=== PATIENT | male | born 1960 | race African-American/Black ===

== ENCOUNTER 2016-11-07 12:37 | Emergency (ER) | payer BC ==
[2016-11-07 12:44] VITALS: TEMP 97.2; BMI 27.8
--- NOTE | 2016-11-07 13:47 | PDOC ---
History of Present Illness - General Chief Complaint: Pain Stated Complaint: RT SIDE/BACK PAIN Time Seen by Provider: 11/07/16 13:47 History Source: Patient Exam Limitations: No Limitations - History of Present Illness Initial Comments: 11/07/16 13:47 CHIEF COMPLAINT: Flank pain HISTORY OF PRESENT ILLNESS: This is a 56 year old male with a history only of bilateral hip replacement who presents complaining of three days of worsening right flank pain. He reports no relief of pain from Motrin. He denies fevers/ chills, nausea/vomiting, dysuria/hematuria, or any other symptoms. He has no history of kidney stones. 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 V/s on arrival are notable for BP 168/102. REVIEW OF SYSTEMS: GENERAL/CONSTITUTIONAL: No fever or chills. No weakness. No weight change. HEAD, EYES, EARS, NOSE AND THROAT: No change in vision. No ear pain or discharge. No sore throat. CARDIOVASCULAR: No chest pain or palpitations. RESPIRATORY: No cough, wheezing, or shortness of breath. GASTROINTESTINAL: No nausea, vomiting, diarrhea or constipation. GENITOURINARY: See HPI. MUSCULOSKELETAL: No joint or muscle swelling or pain. No neck or back pain. SKIN: No rash or easy bruising. NEUROLOGIC: No headache, vertigo, loss of consciousness, or loss of sensation. PSYCHIATRIC: No depression or anxiety. ENDOCRINE: No increased thirst. No abnormal weight change. HEMATOLOGIC/LYMPHATIC: No anemia, easy bleeding, or history of blood clots. ALLERGIC/IMMUNOLOGIC: No hives or skin allergy. No latex allergy. PHYSICAL EXAM: GENERAL: The patient is awake, alert, and fully oriented, in no acute distress. HEAD: Normal with no signs of trauma. ENT: Pupils equal, round and reactive to light, extraocular movements intact, sclera anicteric, conjunctiva clear. Neck supple. LUNGS: Clear to auscultation bilaterally. Normal excursion. No respiratory distress or use of accessory muscles. CV: RRR, S1/S2, no MRG. Cap refill < 2 sec. ABDOMEN: Soft, non-distended, non-tender. Right CVA tenderness. EXTREMITIES: Normal range of motion, no edema. NEUROLOGICAL: Normal speech, normal gait. CN II-XII grossly intact. PSYCH: Normal mood, normal affect. SKIN: Warm, dry, normal turgor, no rashes or lesions noted. Past History - Past Medical History Allergies/Adverse Reactions: Allergies Allergy/AdvReac Type Severity Reaction Status Date / Time No Known Allergies Allergy Verified 11/07/16 12:45 Home Medications: Ambulatory Orders Omeprazole Magnesium [Prilosec] 10 mg PO DAILY 11/07/16 Oxycodone HCl/Acetaminophen [Percocet 5-325 mg Tablet] 1 tab PO Q6H PRN #20 tablet MDD 4 11/07/16 Anemia: No Asthma: No Cancer: No Cardiac Disorders: Yes (STATES "EXTRA' HEART BEAT-HE WAS TOLD THIS A LONG TIME AGO) CVA: No COPD: No CHF: No Dementia: No Diabetes: No GI Disorders: Yes (GERD) Disorders: No HTN: No Hypercholesterolemia: No Liver Disease: No Seizures: No Thyroid Disease: No - Surgical History Abdominal Surgery: No Appendectomy: No Cardiac Surgery: No Cholecystectomy: No Lung Surgery: No Neurologic Surgery: No Orthopedic Surgery: Yes (LEFT HIP REPLACEMENT 01/2016, LEFT KNEE ARTHROSCOPY IN PAST) - Immunization History Immunization Up to Date: Yes - Psycho/Social/Smoking Cessation Hx Anxiety: No Suicidal Ideation: No Smoking Status: No Smoking History: Never smoked Have you smoked in the past 12 months: No Number of Cigarettes Smoked Daily: 0 If you are a former smoker, when did you quit?: 20 years ago Hx Alcohol Use: No Drug/Substance Use Hx: No Substance Use Type: None Hx Substance Use Treatment: No *Physical Exam - Vital Signs Last Vital Signs Temp Pulse Resp BP Pulse Ox 97.2 F L 85 20 168/102 97 11/07/16 12:38 11/07/16 12:38 11/07/16 12:38 11/07/16 12:38 11/07/16 12:38 ED Treatment Course - LABORATORY CBC & Chemistry Diagram: 11/07/16 14:19 11/07/16 14:19 Medical Decision Making - Medical Decision Making 11/07/16 15:34 A/P: 56 year old male with flank pain. 1. UA/culture 2. Basic labs 3. Toradol 30mg IVP for pain 4. CT spiral renal stone protocol 5. Re-assess 11/07/16 15:55 K 5.4 11/07/16 16:35 No relief of pain from Toradol 30mg IVP. Will give morphine 4mg. 11/07/16 17:20 CT reviewed: punctate right kidney stone with 1 cm cyst in lower pole. Pain improved. Will dc with nephrology followup. *DC/Admit/Observation/Transfer Diagnosis at time of Disposition: Right flank pain - Discharge Dispostion Disposition: HOME Condition at time of disposition: Improved Admit: No - Referrals Referrals: Abhijit Mendoza MD [Primary Care Provider] - - Patient Instructions Printed Discharge Instructions: DI for Flank Pain Additional Instructions: -Rest and stay well-hydrated -Take pain medication as needed -Follow up with nephrology regarding the right renal cyst that was identified on your CT scan (referral enclosed) -Retrn here for worsening pain or any other concerning symptoms - Post Discharge Activity Work/School Note: Parent(s) Back to Work Note
[2016-11-07] MEDS ORDERED: KETOROLAC TROMETHAMINE 30 MG/1 ML VIAL IVPUSH ONE (14:00)
[2016-11-07] MEDS ORDERED: KETOROLAC TROMETHAMINE 30 MG/1 ML VIAL ONE (14:23)
[2016-11-07 14:50] LABS: BASOPHIL 0.8 % (0-2.0); MCH 27.3 pg (25.7-33.7); MCHC 32.6 g/dl (32.0-35.9); MEAN PLT VOLUME 9.1 fl (7.5-11.1); NEUTROPHILS 49.3 % (42.8-82.8); PLATELET COUNT 236 K/MM3 (134-434); WHITE BLOOD COUNT 5.1 K/mm3 (4.0-10.0)
[2016-11-07 14:58] LABS: URINE APPEARANCE CLEAR; URINE BILIRUBIN NEGATIVE (NEGATIVE); URINE BLOOD NEGATIVE (NEGATIVE); URINE COLOR LTYELLOW; URINE GLUCOSE (UA) NEGATIVE (NEGATIVE); URINE KETONE NEGATIVE (NEGATIVE); URINE LEUK ESTERASE NEGATIVE (NEGATIVE); URINE NITRITE NEGATIVE (NEGATIVE); URINE UROBILINOGEN NEGATIVE E.U./dl (0.2-1.0)
[2016-11-07 15:02] LABS: URINE PROTEIN 1+ (NEGATIVE)
[2016-11-07 15:14] LABS: ALBUMIN 3.8 g/dl (3.4-5.0); ANION GAP 10 (8-16); CALCIUM 9.1 mg/dL (8.5-10.1); CO2 27 mmol/L (21-32); CREATININE 0.8 mg/dL (0.7-1.3); GLUCOSE,RANDOM 86 mg/dL (74-106); SGPT/ALT 30 U/L (12-78)
[2016-11-07 15:15] LABS: ALK PHOS 59 U/L (45-117); BILIRUBIN,TOTAL 0.5 mg/dL (0.2-1.0); TOT PROT 7.8 g/dl (6.4-8.2)
[2016-11-07 15:25] LABS: SGOT/AST 41 U/L (15-37)
[2016-11-07 16:16] LABS: URINE MUCUS RARE; URINE RBC <1 /hpf (0-3); URINE WBC 1 /hpf (3-5)
[2016-11-07 16:22] LABS: URINE HYALINE CAST 1 /lpf
[2016-11-07] MEDS ORDERED: morphine CARPU-JECT 4 MG/1 ML DISP.SYRIN IVPUSH ONE (16:35)
[2016-11-07] MEDS ORDERED: morphine CARPU-JECT 4 MG/1 ML DISP.SYRIN ONE (16:44)
[2016-11-07 18:13] VITALS: BP 154/88; PULSE 80
== END 2016-11-07 18:14 | disposition home or self-care (01) ==
LOC: JER 12:37
PROC: 3E033NZ Introduction of Analgesics, Hypnotics, Sedatives into Peripheral Vein, Percutaneous Approach (ICD-10-PCS; principal; 2016-11-07)
PROC: 3E0333Z Introduction of Anti-inflammatory into Peripheral Vein, Percutaneous Approach (ICD-10-PCS; 2016-11-07)
DX: R10.31 Right lower quadrant pain (principal)
CPT/HCPCS: 36415; 74176; 80053; 81003; 81015; 85025; 87086; 99283-25

== ENCOUNTER 2016-11-10 10:27 | Emergency (ER) | payer BC ==
[2016-11-10 10:37] VITALS: BMI 27.8
[2016-11-10] MEDS ORDERED: KETOROLAC TROMETHAMINE 30 MG/1 ML VIAL IVPUSH ONE (10:56)
[2016-11-10] MEDS ORDERED: SODIUM CHLORIDE 1,000 ML IV STA (10:56)
[2016-11-10] MEDS ORDERED: KETOROLAC TROMETHAMINE 30 MG/1 ML VIAL ONE (10:59)
--- NOTE | 2016-11-10 11:11 | PDOC ---
History of Present Illness - General Chief Complaint: Pain Stated Complaint: KIDNEY PAIN Time Seen by Provider: 11/10/16 10:49 History Source: Patient Exam Limitations: No Limitations - History of Present Illness Travel History: No Initial Comments: 11/10/16 11:09 56-year-old male recently diagnosed with a right kidney stone presents to the ED with worsening right flank pain stating the Percocet is not working. Patient states he also has been constipated for the past 2 days and took Dulcolax pill this morning prior to arrival. Patient denies nausea, fever, chills, difficulty urinating, hematuria, or radiation of pain. Patient states has not appointment with the urologist until next week and so decided to come to the ER today. Timing/Duration: reports: intermittent Quality: reports: moderate, sharpness Abdominal Pain Onset Location: reports: flank Pain Radiation: reports: no radiation Activities at Onset: reports: none Aggravating Factors: improves with: None Alleviating Factors: improves with: None Past History - Past Medical History Allergies/Adverse Reactions: Allergies Allergy/AdvReac Type Severity Reaction Status Date / Time No Known Allergies Allergy Verified 11/10/16 10:33 Home Medications: Ambulatory Orders Omeprazole Magnesium [Prilosec] 10 mg PO DAILY 11/07/16 Oxycodone HCl/Acetaminophen [Percocet 5-325 mg Tablet] 1 tab PO Q6H PRN #20 tablet MDD 4 11/07/16 Tamsulosin HCl [Flomax] 0.4 mg PO DAILY #7 cap.er.24h 11/10/16 Anemia: No Asthma: No Cancer: No Cardiac Disorders: Yes (STATES "EXTRA' HEART BEAT-HE WAS TOLD THIS A LONG TIME AGO) CVA: No COPD: No CHF: No Dementia: No Diabetes: No GI Disorders: Yes (GERD) Disorders: No HTN: No Hypercholesterolemia: No Kidney Stones: Yes Liver Disease: No Seizures: No Thyroid Disease: No - Surgical History Abdominal Surgery: No Appendectomy: No Cardiac Surgery: No Cholecystectomy: No Lung Surgery: No Neurologic Surgery: No Orthopedic Surgery: Yes (LEFT HIP REPLACEMENT 01/2016, LEFT KNEE ARTHROSCOPY IN PAST) - Immunization History Immunization Up to Date: Yes - Psycho/Social/Smoking Cessation Hx Anxiety: No Suicidal Ideation: No Smoking Status: No Smoking History: Never smoked Have you smoked in the past 12 months: No Number of Cigarettes Smoked Daily: 0 If you are a former smoker, when did you quit?: 20 years ago Information on smoking cessation initiated: No Hx Alcohol Use: No Drug/Substance Use Hx: No Substance Use Type: None Hx Substance Use Treatment: No Patient Lives Alone: No Abd/GI Specific PMHX - Complaint Specific PMHX GERD: No Review of Systems - Review of Systems Able to Perform ROS?: Yes Constitutional: No: Symptoms Reported HEENTM: No: Symptoms Reported Respiratory: No: Symptoms reported Cardiac (ROS): No: Symptoms Reported ABD/GI: Yes: Constipated : Yes: Flank Pain Musculoskeletal: No: Symptoms Reported Integumentary: No: Symptoms Reported Neurological: No: Symptoms reported Endocrine: No: Symptoms Reported Hematologic/Lymphatic: No: Symptoms Reported *Physical Exam - Vital Signs Last Vital Signs Temp Pulse Resp BP Pulse Ox 98.6 F 83 18 169/115 100 11/10/16 10:34 11/10/16 10:34 11/10/16 10:34 11/10/16 10:34 11/10/16 10:34 - Physical Exam General Appearance: Yes: Nourished, Appropriately Dressed. No: Apparent Distress HEENT: positive: EOMI, DAVEY. negative: Pale Conjunctivae Neck: positive: Supple Respiratory/Chest: positive: Lungs Clear, Normal Breath Sounds. negative: Respiratory Distress, Accessory Muscle Use Cardiovascular: positive: Regular Rhythm, Regular Rate. negative: Murmur Gastrointestinal/Abdominal: positive: Soft, Tenderness (rt flank. no ruq pain) Musculoskeletal: positive: CVA Tenderness (R) Extremity: positive: Normal Capillary Refill. negative: Pedal Edema Integumentary: positive: Normal Color, Warm, Moist Neurologic: positive: Motor Strength 5/5 (ambulatory) ED Treatment Course - LABORATORY CBC & Chemistry Diagram: 11/10/16 10:50 11/10/16 13:00 - RADIOLOGY Radiology Studies Ordered: Category Date Time Status KIDNEY / RENAL US [US] Stat Ultrasound 11/10/16 10:56 Ordered Medical Decision Making - Medical Decision Making 11/10/16 11:24 Patient here with continual right flank pain without fever, dysuria or hematuria. Patient states Percocet ineffective and ordered for labs, Toradol, IV fluids urine and ultrasound to observe for obstruction. Patient also ordered for Flomax 11/10/16 13:56 Laboratory Tests 11/10/16 11/10/16 11/10/16 10:50 10:50 13:00 WBC 4.3 Hgb 15.6 Hct 47.2 Plt Count 251 Neutrophils % 49.5 Sodium 138 Potassium 4.5 Chloride 102 Carbon Dioxide 28 Anion Gap 8 Creatinine 0.8 Random Glucose 92 Calcium 8.7 AST 25 D ALT 32 Lipase 91 Urine Protein 1+ H Urine Ketones Negative Urine Blood Negative Urine Nitrite Negative Ur Leukocyte Esterase Negative Urine RBC <1 Ultrasound notes a right renal cyst with no hydronephrosis or other acute pathology. Patient will be discharged home with Flomax and told to follow up with his urologist. *DC/Admit/Observation/Transfer Diagnosis at time of Disposition: Flank pain - Discharge Dispostion Disposition: HOME Condition at time of disposition: Improved - Prescriptions Prescriptions: Tamsulosin HCl [Flomax] 0.4 mg PO DAILY #7 cap.er.24h - Referrals Referrals: Abhijit Mendoza MD [Primary Care Provider] - Miles Lozada MD [Staff Physician] - Parminder Wilder MD [Staff Physician] - - Patient Instructions Printed Discharge Instructions: DI for Kidney Stones Additional Instructions: Please follow-up with urologist as scheduled next week. Please and plenty of fluid intake Flomax with your regimen. Continue Percocet as needed for discomfort. Add fiber to diet. May take [id number] MiraLAX for constipation
[2016-11-10 11:43] LABS: BASOPHIL 0.7 % (0-2.0); MCH 27.5 pg (25.7-33.7); MCHC 33.1 g/dl (32.0-35.9); MEAN CELL VOLUME 83.1 fl (80-96); MEAN PLT VOLUME 8.8 fl (7.5-11.1); NEUTROPHILS 49.5 % (42.8-82.8); PLATELET COUNT 251 K/MM3 (134-434); RDW 14.7 % (11.9-15.9); URINE APPEARANCE CLEAR; URINE BILIRUBIN NEGATIVE (NEGATIVE); URINE BLOOD NEGATIVE (NEGATIVE); URINE COLOR STRAW; URINE GLUCOSE (UA) NEGATIVE (NEGATIVE); URINE KETONE NEGATIVE (NEGATIVE); URINE LEUK ESTERASE NEGATIVE (NEGATIVE); URINE NITRITE NEGATIVE (NEGATIVE); URINE UROBILINOGEN NEGATIVE E.U./dl (0.2-1.0); WHITE BLOOD COUNT 4.3 K/mm3 (4.0-10.0)
[2016-11-10 11:44] LABS: URINE PROTEIN 1+ (NEGATIVE)
[2016-11-10 11:45] LABS: URINE MUCUS RARE; URINE RBC <1 /hpf (0-3); URINE WBC <1 /hpf (3-5)
--- NOTE | 2016-11-10 12:31 | PDOC ---
*Physical Exam - Vital Signs Last Vital Signs Temp Pulse Resp BP Pulse Ox 98.6 F 82 16 155/114 97 11/10/16 10:34 11/10/16 11:27 11/10/16 11:27 11/10/16 11:27 11/10/16 11:27 ED Treatment Course - LABORATORY CBC & Chemistry Diagram: 11/10/16 10:50 11/10/16 13:00 - ADDITIONAL ORDERS Additional order review: Laboratory Results 11/10/16 11/10/16 11:23 10:50 Sodium Cancelled Potassium Cancelled Chloride Cancelled Carbon Dioxide Cancelled Anion Gap Cancelled BUN Cancelled Creatinine Cancelled Creat Clearance w eGFR Cancelled Random Glucose Cancelled Calcium Cancelled Total Bilirubin Cancelled AST Cancelled ALT Cancelled Alkaline Phosphatase Cancelled Total Protein Cancelled Albumin Cancelled Lipase Cancelled Urine Color Straw Urine Appearance Clear Urine pH 6.0 Ur Specific [place] 1.011 Urine Protein 1+ H Urine Glucose (UA) Negative Urine Ketones Negative Urine Blood Negative Urine Nitrite Negative Urine Bilirubin Negative Urine Urobilinogen Negative Ur Leukocyte Esterase Negative Urine RBC <1 Urine WBC <1 Urine Mucus Rare 11/10/16 10:50 RBC 5.68 H MCV 83.1 MCHC 33.1 RDW 14.7 MPV 8.8 Neutrophils % 49.5 Lymphocytes % 32.6 Monocytes % 15.2 H Eosinophils % 2.0 Basophils % 0.7 - Medications Given in the ED: ED Medications Discontinued Medications Generic Name Dose Route Start Last Admin Trade Name Freq PRN Reason Stop Dose Admin Sodium Chloride 1,000 mls @ 1,000 mls/hr 11/10/16 10:56 11/10/16 11:10 Normal Saline - IV 11/10/16 11:55 1,000 mls/hr ASDIR STA Administration Ketorolac Tromethamine 30 mg 11/10/16 10:56 11/10/16 11:10 Toradol Injection - IVPUSH 11/10/16 10:57 30 mg ONCE ONE Administration Medical Decision Making - Medical Decision Making 11/10/16 12:31 Pt seen by Midlevel Provider under my direct supervision Ancillary studies reviewed I agree with plan as outlined by Midlevel Provider *DC/Admit/Observation/Transfer Diagnosis at time of Disposition: Flank pain - Discharge Dispostion Disposition: HOME Condition at time of disposition: Improved - Prescriptions Prescriptions: Tamsulosin HCl [Flomax] 0.4 mg PO DAILY #7 cap.er.24h - Referrals Referrals: Jefferson-Parminder Urbina MD [Staff Physician] - Abhijit Mendoza MD [Primary Care Provider] - Miles Lozada MD [Staff Physician] - - Patient Instructions Printed Discharge Instructions: DI for Kidney Stones Additional Instructions: Please follow-up with urologist as scheduled next week. Please and plenty of fluid intake Flomax with your regimen. Continue Percocet as needed for discomfort. Add fiber to diet. May take [id number] MiraLAX for constipation
[2016-11-10] MEDS ORDERED: morphine CARPU-JECT 2 MG/1 ML DISP.SYRIN IVPUSH ONE (12:52)
[2016-11-10] MEDS ORDERED: morphine CARPU-JECT 2 MG/1 ML DISP.SYRIN ONE (12:55)
[2016-11-10] MEDS ORDERED: morphine CARPU-JECT 4 MG/1 ML DISP.SYRIN ONE (12:55)
[2016-11-10 13:31] LABS: ALBUMIN 3.6 g/dl (3.4-5.0); ANION GAP 8 (8-16); CALCIUM 8.7 mg/dL (8.5-10.1); CO2 28 mmol/L (21-32); CREATININE 0.8 mg/dL (0.7-1.3); GLUCOSE,RANDOM 92 mg/dL (74-106); SGOT/AST 25 U/L (15-37); SGPT/ALT 32 U/L (12-78)
[2016-11-10 13:33] LABS: ALK PHOS 60 U/L (45-117); BILIRUBIN,TOTAL 0.4 mg/dL (0.2-1.0); TOT PROT 7.3 g/dl (6.4-8.2)
[2016-11-10 14:50] VITALS: BP 144/105; PULSE 81; TEMP 98
== END 2016-11-10 14:46 | disposition home or self-care (01) ==
LOC: JER 10:27
PROC: 3E033NZ Introduction of Analgesics, Hypnotics, Sedatives into Peripheral Vein, Percutaneous Approach (ICD-10-PCS; principal; 2016-11-10)
DX: R10.31 Right lower quadrant pain (principal); Z87.442 Personal history of urinary calculi
CPT/HCPCS: 36415; 76775-TC; 80053; 81003; 81015; 83690; 85025; 99284-25

== ENCOUNTER 2017-03-18 05:54 | Observation (INO) | payer BC ==
[2017-03-18 06:34] VITALS: BMI 27.8
--- NOTE | 2017-03-18 07:40 | PDOC ---
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 He also states that the pain radiated to the epigastrium but not anymore. pmh of kidney stones and hep c 03/18/17 07:57 patient complains that his acid reflux is acting up. No dysuria, hematuria, shortness of breath, chest pain, nausea or vomiting. <Bill Melgoza - Last Filed: 03/18/17 12:16> <Tiffanie Godfrey - Last Filed: 03/18/17 16:37> - General Chief Complaint: Chest Pain Stated Complaint: CHEST PAIN Time Seen by Provider: 03/18/17 07:24 Past History - Past Medical History Anemia: No Asthma: No Cancer: No Cardiac Disorders: Yes (STATES "EXTRA' HEART BEAT-HE WAS TOLD THIS A LONG TIME AGO) CVA: No COPD: No CHF: No Dementia: No Diabetes: No GI Disorders: Yes (GERD) Disorders: No HTN: No Hypercholesterolemia: No Kidney Stones: Yes Liver Disease: No Seizures: No Thyroid Disease: No - Surgical History Abdominal Surgery: No Appendectomy: No Cardiac Surgery: No Cholecystectomy: No Lung Surgery: No Neurologic Surgery: No Orthopedic Surgery: Yes (LEFT HIP REPLACEMENT 01/2016, LEFT KNEE ARTHROSCOPY IN PAST) - Immunization History Immunization Up to Date: Yes - Psycho/Social/Smoking Cessation Hx Anxiety: No Suicidal Ideation: No Smoking Status: No Smoking History: Former smoker Have you smoked in the past 12 months: No Number of Cigarettes Smoked Daily: 0 If you are a former smoker, when did you quit?: 20 years ago Information on smoking cessation initiated: No Hx Alcohol Use: No Drug/Substance Use Hx: No Substance Use Type: None Hx Substance Use Treatment: No <Bill Melgoza - Last Filed: 03/18/17 12:16> <Tiffanie Godfrey - Last Filed: 03/18/17 16:37> - Past Medical History Allergies/Adverse Reactions: Allergies Allergy/AdvReac Type Severity Reaction Status Date / Time No Known Allergies Allergy Verified 03/18/17 06:01 Home Medications: Ambulatory Orders Omeprazole Magnesium [Prilosec] 20 mg PO DAILY 03/18/17 Abd/GI Specific PMHX - Complaint Specific PMHX GERD: No <Bill Melgoza - Last Filed: 03/18/17 12:16> Review of Systems - Review of Systems Constitutional: No: Symptoms Reported HEENTM: No: Symptoms Reported Respiratory: Yes: Symptoms reported. No: Orthopnea, Shortness of Breath, Stridor, Wheezing Cardiac (ROS): No: Symptoms Reported, Edema, Irregular Heart Rate, Palpitations ABD/GI: Yes: Abdominal Distended, Indigestion. No: Nausea : Yes: See HPI. No: Burning, Dysuria, Discharge Musculoskeletal: No: Symptoms Reported <MelgozaBill - Last Filed: 03/18/17 12:16> *Physical Exam - Vital Signs Last Vital Signs Temp Pulse Resp BP Pulse Ox 98.1 F 80 16 133/84 100 03/18/17 06:00 03/18/17 06:00 03/18/17 06:00 03/18/17 06:00 03/18/17 06:00 - Physical Exam General Appearance: Yes: Nourished, Appropriately Dressed. No: Apparent Distress HEENT: positive: Normal ENT Inspection (Strabismus of the eyes with horizontal nystagmus, chonic condition) Respiratory/Chest: positive: Lungs Clear, Normal Breath Sounds. negative: Chest Tender Cardiovascular: positive: Regular Rhythm, Regular Rate, S1, S2 Gastrointestinal/Abdominal: positive: Normal Bowel Sounds, Soft. negative: Tender Musculoskeletal: positive: CVA Tenderness (R), CVA Tenderness (L). negative: Vertebral Tenderness Extremity: positive: Coldness (possible clubbin), Delayed Capillary Refill. negative: Pedal Edema Neurologic: positive: Fully Oriented, Alert, Normal Mood/Affect <AbadBill - Last Filed: 03/18/17 12:16> - Vital Signs Last Vital Signs Temp Pulse Resp BP Pulse Ox 98.7 F 68 16 134/78 98 03/18/17 11:57 03/18/17 11:57 03/18/17 11:57 03/18/17 11:57 03/18/17 11:57 <Tiffanie Godfrey - Last Filed: 03/18/17 16:37> ED Treatment Course - LABORATORY CBC & Chemistry Diagram: 03/18/17 07:30 03/18/17 07:30 <Bill Melgoza - Last Filed: 03/18/17 12:16> - LABORATORY CBC & Chemistry Diagram: 03/18/17 07:30 03/18/17 07:30 - ADDITIONAL ORDERS Additional order review: Laboratory Results 03/18/17 03/18/17 03/18/17 08:52 07:30 07:30 Sodium 137 Potassium 5.1 Chloride 104 Carbon Dioxide 24 Anion Gap 9 BUN 15 D Creatinine 1.0 D Creat Clearance w eGFR > 60 Random Glucose 105 Calcium 9.3 Magnesium Cancelled 1.9 Total Bilirubin 0.5 D AST 33 D ALT 30 Alkaline Phosphatase 59 Creatine Kinase 158 Creatine Kinase Index 0.6 CK-MB (CK-2) 1.004 Troponin I < 0.02 Total Protein 7.6 Albumin 3.5 Urine Color Dkyellow Urine Appearance Slcloudy Urine pH 5.0 Ur Specific [place] 1.025 Urine Protein 2+ H Urine Glucose (UA) Negative Urine Ketones Trace H Urine Blood Negative Urine Nitrite Negative Urine Bilirubin Negative Urine Urobilinogen Negative Ur Leukocyte Esterase Negative Urine RBC 1 Urine WBC 1 Hyaline Casts 12 Urine Mucus Many 03/18/17 07:30 RBC 5.82 H MCV 85.5 MCHC 33.1 RDW 14.2 MPV 8.9 Neutrophils % 64.3 D Lymphocytes % 19.2 D Monocytes % 15.4 H Eosinophils % 0.8 Basophils % 0.3 - Medications Given in the ED: ED Medications Discontinued Medications Generic Name Dose Route Start Last Admin Trade Name David PRN Reason Stop Dose Admin Pantoprazole Sodium 40 mg/ 100 mls @ 200 mls/hr 03/18/17 07:56 03/18/17 08:40 Sodium Chloride IVPB 03/18/17 08:25 200 mls/hr ONCE ONE Administration Ibuprofen 800 mg 03/18/17 07:56 03/18/17 08:53 Caldolor Injection - IVPB 03/18/17 07:57 Not Given ONCE ONE Ibuprofen 800 mg 03/18/17 08:50 03/18/17 08:53 Motrin - PO 03/18/17 08:51 800 mg ONCE ONE Administration Morphine Sulfate 4 mg 03/18/17 09:49 03/18/17 09:55 Morphine Injection - IVPUSH 03/18/17 09:50 4 mg ONCE ONE Administration <Tiffanie Godfrey - Last Filed: 03/18/17 16:37> Medical Decision Making - Medical Decision Making 03/18/17 08:15 57M with h/o kidney stones presents with b/l flank pain. labs negative EKg: normal sinus rythm. Possible Left atrial enlargement. Nonspecific ST and T wave abnormality." B/l renal cysts on U/S UA: 2+ protein, 12 hyaline casts, many mucus 03/18/17 11:[address] Mendoza who recommended admit telemetry beuro checks q4, Low Na diet and consult with Dr Troy 03/18/17 12:17 <Bill Melgoza - Last Filed: 03/18/17 12:16> *DC/Admit/Observation/Transfer - Discharge Dispostion Admit: Yes <Bill Melgoza - Last Filed: 03/18/17 12:16> - Discharge Dispostion Admit: Yes <Tiffanie Godfrey - Last Filed: 03/18/17 16:37> Diagnosis at time of Disposition: Pre-syncope, Bilateral flank pain Chest pain Qualifiers: Chest pain type: unspecified Qualified Code(s): R07.9 - Chest pain, unspecified - Discharge Dispostion Condition at time of disposition: Stable - Referrals Referrals: Abhijit Mendoza MD [Primary Care Provider] - - Patient Instructions Printed Discharge Instructions: DI for Low Back Pain
[2017-03-18 07:46] LABS: BASOPHIL 0.3 % (0-2.0); EOSINOPHIL 0.8 % (0-4.5); MCH 28.3 pg (25.7-33.7); MCHC 33.1 g/dl (32.0-35.9); MEAN CELL VOLUME 85.5 fl (80-96); MEAN PLT VOLUME 8.9 fl (7.5-11.1); NEUTROPHILS 64.3 % (42.8-82.8); PLATELET COUNT 251 K/MM3 (134-434); RDW 14.2 % (11.9-15.9); WHITE BLOOD COUNT 6.1 K/mm3 (4.0-10.0)
[2017-03-18] MEDS ORDERED: IBUPROFEN 800 MG/8 ML IJ IVPB ONE ×2 (07:56→18:46)
[2017-03-18] MEDS ORDERED: PANTOPRAZOLE SODIUM 40 MG in SODIUM CHLORIDE 100 ML IVPB ONE (07:56)
--- NOTE | 2017-03-18 08:08 | PDOC ---
Attending Attestation - Resident Resident Name: Bill Melgoza - ED Attending Attestation I have performed the following: I have examined & evaluated the patient, The case was reviewed & discussed with the resident, I agree w/resident's findings & plan, Exceptions are as noted - HPI HPI: 57 yo M history albinism, blindness, prior kidney stone presents with B/L flank pain. He has had similar pain in the past, was found to have small (punctate) kidney stone as well as renal cyst. The pain resolved spontaneously, and he did not subsequently follow up. This morning he had another episode of pain, felt as if he was sweaty, about to pass out. He had associated epigastric pain as well. Denies SOB. Pain is similar to prior visit for kidney stone. - Physicial Exam PE: GENERAL: Awake, alert, and fully oriented, in no acute distress HEAD: No signs of trauma EYES: +B/L horizontal nystagmus. ENT: Auricles normal inspection, hearing grossly normal, nares patent, oropharynx clear without exudates. Moist mucosa NECK: Normal ROM, supple, no lymphadenopathy, JVD, or masses LUNGS: Breath sounds equal, clear to auscultation bilaterally. No wheezes, and no crackles HEART: Regular rate and rhythm, normal S1 and S2, no murmurs, rubs or gallops ABDOMEN: Soft, nontender, normoactive bowel sounds. No guarding, no rebound. No masses EXTREMITIES: Normal range of motion, no edema. No clubbing or cyanosis. No cords, erythema, or tenderness NEUROLOGICAL: Cranial nerves II through XII grossly intact. Normal speech, normal gait SKIN: Warm, Dry, normal turgor, no rashes or lesions noted. +Albinism. - Medical Decision Making Patient with flank pain, epigastric pain, near syncope. Renal scan with cysts, but no hydro. D/w Dr. Mendoza, will place on tele.
[2017-03-18 08:27] LABS: ALBUMIN 3.5 g/dl (3.4-5.0); ANION GAP 9 (8-16); BILIRUBIN,TOTAL 0.5 mg/dL (0.2-1.0); CALCIUM 9.3 mg/dL (8.5-10.1); CO2 24 mmol/L (21-32); GLUCOSE,RANDOM 105 mg/dL (74-106); SGPT/ALT 30 U/L (12-78); TOT PROT 7.6 g/dl (6.4-8.2)
[2017-03-18 08:29] LABS: ALK PHOS 59 U/L (45-117); TROPONIN I < 0.02 ng/ml (0.00-0.05)
[2017-03-18] MEDS ORDERED: PANTOPRAZOLE SODIUM 100 ML IVPB ONE (08:29)
[2017-03-18] MEDS ORDERED: IBUPROFEN 400 MG TABLET (FP) PO ONE ×2 (08:29→08:50)
[2017-03-18 08:32] LABS: CPK 158 IU/L (39-308); SGOT/AST 33 U/L (15-37)
[2017-03-18 09:28] LABS: URINE APPEARANCE SLCLOUDY; URINE BILIRUBIN NEGATIVE (NEGATIVE); URINE BLOOD NEGATIVE (NEGATIVE); URINE COLOR DKYELLOW; URINE GLUCOSE (UA) NEGATIVE (NEGATIVE); URINE KETONE TRACE (NEGATIVE); URINE LEUK ESTERASE NEGATIVE (NEGATIVE); URINE NITRITE NEGATIVE (NEGATIVE); URINE UROBILINOGEN NEGATIVE mg/dL (0.2-1.0)
[2017-03-18 09:30] LABS: URINE PROTEIN 2+ (NEGATIVE)
[2017-03-18 09:38] LABS: URINE HYALINE CAST 12 /lpf; URINE MUCUS MANY; URINE RBC 1 /hpf (0-3); URINE WBC 1 /hpf (3-5)
[2017-03-18 09:39] LABS: MAGNESIUM 1.9 mg/dL (1.8-2.4)
[2017-03-18] MEDS ORDERED: morphine CARPU-JECT 4 MG/1 ML DISP.SYRIN IVPUSH ONE (09:49)
[2017-03-18] MEDS ORDERED: morphine CARPU-JECT 4 MG/1 ML DISP.SYRIN ONE (09:56)
--- NOTE | 2017-03-18 13:34 | EKG ---
Test Reason : Blood Pressure : / mmHG Vent. Rate : 081 BPM Atrial Rate : 081 BPM P-R Int : 170 ms QRS Dur : 094 ms QT Int : 382 ms P-R-T Axes : 059 061 082 degrees QTc Int : 443 ms NORMAL SINUS RHYTHM POSSIBLE LEFT ATRIAL ENLARGEMENT NONSPECIFIC ST AND T WAVE ABNORMALITY ABNORMAL ECG WHEN COMPARED WITH ECG OF 06-JUN-2012 12:26, T WAVE INVERSION NOW EVIDENT IN LATERAL LEADS Confirmed by TOMMIE RATLIFF, TIFF ([id number]) on 03/18/2017 1:34:35 PM Referred By: Confirmed By:TIFF REILLY MD
--- NOTE | 2017-03-18 18:27 | HP ---
Admitting History and Physical - Primary Care Physician PCP: Abhijit Mendoza - Admission Chief Complaint: SYNCOPE EPISODE History of Present Illness: 57M with h/o albinism and partial blindness and b/l replacement, present to the ED with b/l flank pain and and dizziness, described as an episode where he almost passed out but was caught by his friends. He also states that the pain radiated to the epigastrium but not anymore. pmh of kidney stones and hep c 03/18/17 07:57 patient complains that his acid reflux is acting up. No dysuria, hematuria, shortness of breath, chest pain, nausea or vomiting. History Source: Patient, Medical Record Limitations to Obtaining History: Poor Historian - Past Medical History Cardiovascular: Yes: HTN Gastrointestinal: Yes: GERD Hepatobiliary: Yes: Hepatitis C (treated 10 yrs ago with interferon). No: Cirrhosis, Cholelithiasis, Cholecystitis, Choledocholithiasis, Hepatitis A, Hepatitis B, Other Musculoskeletal: Yes: Osteoarthritis - Past Surgical History Past Surgical History: Yes: Arthrosocopy (knee arthroscopy) - Smoking History Smoking history: Former smoker Have you smoked in the past 12 months: No Aproximately how many cigarettes per day: 0 If you are a former smoker, when did you quit?: 20 years ago - Alcohol/Substance Use Hx Alcohol Use: No Home Medications - Allergies Allergies/Adverse Reactions: Allergies Allergy/AdvReac Type Severity Reaction Status Date / Time No Known Allergies Allergy Verified 03/18/17 06:01 - Home Medications Home Medications: Ambulatory Orders Omeprazole Magnesium [Prilosec] 20 mg PO DAILY 03/18/17 Review of Systems - Review of Systems Constitutional: reports: Weakness Eyes: reports: No Symptoms HENT: reports: No Symptoms Neck: reports: No Symptoms Cardiovascular: reports: Palpitations Respiratory: reports: No Symptoms Gastrointestinal: reports: Abdominal Pain, Indigestion Genitourinary: reports: No Symptoms Musculoskeletal: reports: Muscle Weakness Integumentary: reports: No Symptoms Neurological: reports: Dizziness Endocrine: reports: No Symptoms Hematology/Lymphatic: reports: No Symptoms Psychiatric: reports: No Symptoms Physical Examination Vital Signs: Vital Signs Temperature 97.8 F 03/18/17 17:11 Pulse Rate 74 03/18/17 17:11 Respiratory Rate 18 03/18/17 17:11 Blood Pressure 134/78 03/18/17 17:11 O2 Sat by Pulse Oximetry (%) 98 03/18/17 17:11 Constitutional: Yes: Mild Distress Eyes: Yes: WNL HENT: Yes: WNL Neck: Yes: WNL Cardiovascular: Yes: WNL Respiratory: Yes: WNL Gastrointestinal: Yes: WNL Renal/: Yes: WNL Musculoskeletal: Yes: WNL Extremities: Yes: WNL Edema: No Integumentary: Yes: WNL Wound/Incision: Yes: Clean/Dry Neurological: Yes: WNL ...Motor Strength: WNL Psychiatric: Yes: WNL Problem List - Problems (1) Chest pain Code(s): R07.9 - CHEST PAIN, UNSPECIFIED Qualifiers: Chest pain type: unspecified Qualified Code(s): R07.9 - Chest pain, unspecified (2) Pre-syncope Code(s): R55 - SYNCOPE AND COLLAPSE (3) Muscle spasm Code(s): M62.838 - OTHER MUSCLE SPASM Assessment/Plan PATIENT ADMITTED FOR PRESYNCOPE PATIENT ON TELEMETRY CARDIOLOGY EVAL CHECK LABS CORTISOL LEVEL ADMITTED AT [facility] AND [facility] [employer] WORKUP DONE, FOUND WITH LOW CORTISOL LEVELS?? WILL REORDER AND MONITOR ON TELE.
[2017-03-18] MEDS ORDERED: ONDANSETRON *ODT* 4 MG TABLET SL PRN (18:28)
[2017-03-18] MEDS ORDERED: ACETAMINOPHEN 325 MG TABLET (FP) PO PRN (18:28)
[2017-03-18] MEDS: PANTOPRAZOLE 40 MG TABLET (FP) PO SCH (20:00)
[2017-03-19 07:14] LABS: MCH 28.1 pg (25.7-33.7); MEAN CELL VOLUME 85.1 fl (80-96); MEAN PLT VOLUME 9.2 fl (7.5-11.1); PLATELET COUNT 224 K/MM3 (134-434); RDW 13.7 % (11.9-15.9); WHITE BLOOD COUNT 5.1 K/mm3 (4.0-10.0)
[2017-03-19 07:16] VITALS: BP 127/74; PULSE 69; TEMP 98
[2017-03-19 07:50] LABS: ALBUMIN 3.1 g/dl (3.4-5.0); ANION GAP 7 (8-16); CALCIUM 8.3 mg/dL (8.5-10.1); CO2 23 mmol/L (21-32); GLUCOSE,RANDOM 95 mg/dL (74-106)
[2017-03-19 08:02] LABS: ALK PHOS 51 U/L (45-117); BILIRUBIN,TOTAL 0.5 mg/dL (0.2-1.0); CHOLESTEROL 172 mg/dL (50-200); CREATININE 0.9 mg/dL (0.7-1.3); LDL CHOLESTEROL (ONLY SJRH) 117 mg/dL (5-100); SGOT/AST 15 U/L (15-37); SGPT/ALT 23 U/L (12-78); THYROID STIMULATING HORMONE 1.04 uIU/ml (0.358-3.74); TOT PROT 6.5 g/dl (6.4-8.2)
--- NOTE | 2017-03-19 09:08 | PN ---
Progress Note (short form) - Note Progress Note: Consult Dictated 57M admitted w/ episode SSCP at rest w/ radiation to teeth/jaw with diaphoresis and near syncope. ECG w/ new lateral TWI. REC: Add Aspirin. Obtain second set cardiac enzymes. Echo and repeat ECG. His symptoms warrant definitive assessment of coronaries. Will transfer to [facility] for cath.
--- NOTE | 2017-03-19 09:15 | DS ---
Physical Examination Vital Signs: Vital Signs Temperature 98.0 F 03/19/17 07:12 Pulse Rate 69 03/19/17 07:12 Respiratory Rate 20 03/19/17 07:16 Blood Pressure 127/74 03/19/17 07:12 O2 Sat by Pulse Oximetry (%) 97 03/19/17 07:16 Constitutional: Yes: Mild Distress Eyes: Yes: WNL HENT: Yes: WNL Neck: Yes: WNL Cardiovascular: Yes: WNL Respiratory: Yes: WNL Gastrointestinal: Yes: WNL Renal/: Yes: WNL Musculoskeletal: Yes: WNL Extremities: Yes: WNL Edema: No Peripheral Pulses WNL: Yes Integumentary: Yes: WNL Wound/Incision: Yes: Clean/Dry Neurological: Yes: WNL ...Motor Strength: WNL Psychiatric: Yes: WNL Labs: CBC, BMP 03/19/17 05:35 03/19/17 05:35 Discharge Summary Reason For Visit: PRE SYNCOPE\BILATERAL FLANK PAIN\CHEST PAIN Current Active Problems Bilateral flank pain (Acute) Chest pain (Acute) Pre-syncope (Acute) Procedures: Principal: telemetry Other Procedures: labs/cx Hospital Course: transferring for cardiac cath Condition: Stable - Instructions Referrals: Abhijit Mendoza MD [Primary Care Provider] - Disposition: TRANSFER ACUTE CARE/OTHER HOSP - Home Medications Comprehensive Discharge Medication List: Ambulatory Orders Omeprazole Magnesium [Prilosec] 20 mg PO DAILY 03/18/17
[2017-03-19 09:49] LABS: CPK 102 IU/L (39-308)
[2017-03-19 09:50] LABS: TROPONIN I < 0.02 ng/ml (0.00-0.05)
[2017-03-19] MEDS: PANTOPRAZOLE 40 MG TABLET (FP) PO SCH (09:51)
[2017-03-19] MEDS ORDERED: ASPIRIN 81 MG CHEWABLE TABLETS PO SCH (10:00)
[2017-03-19] MEDS ORDERED: METOPROLOL TARTRATE 25 MG TABLET (FP) PO SCH (10:00)
--- NOTE | 2017-03-19 10:04 | CONS ---
DATE OF CONSULTATION: 03/19/2017 REQUESTED BY: Dr. Abhijit Mendoza REASON FOR CONSULTATION: Chest pain and near syncope. The patient is a 57 -year-old male with albinism, reflux, recently diagnosed hypocortisol levels, admitted to the hospital after an episode of substernal chest pain, pressure which occurred at rest while waiting for the bus. On my history, the patient describes standing with his friends waiting for the bus to go to work and developing 8 out of 10 substernal chest pressure which then radiated upwards towards his jaw. He states he felt like he had a toothache on both sides of his jaw associated with this chest pressure, he became lightheaded and had to sit on the ground and then developed a cold sweat. The pain lasted in the ambulance ride and subsided in the emergency department without sublingual nitroglycerin by his report. He denies palpitations, PND, orthopnea or recent heart failure symptoms. His symptoms above were markedly different from his usual reflux symptoms. He denies any recent exertional shortness of breath or chest pain. He was evaluated in 2012 for atypical chest pain at which time a nuclear stress test was unremarkable. Importantly, his current EKG reveals new lateral T-wave inversions as compared to his old ECGs on file from 2012. Currently he is chest pain free and comfortable. Review of telemetry overnight showed normal sinus rhythm. PAST MEDICAL HISTORY: Significant for albinism, GERD, prior hip replacements, recently diagnosed hypocortisolism. ALLERGIES: None. MEDICATIONS AT HOME: Include Prilosec. FAMILY HISTORY: His mother had a heart attack in her 30s. SOCIAL HISTORY: Denies alcohol or tobacco use. 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 PHYSICAL EXAMINATION: General: He is comfortable, afebrile with temperature of 98 Fahrenheit, pulse 69, blood pressure 122/74, O2 saturation is 100% on room air. Neck: No bruits. Heart: S1, S2, regular, no murmurs. Chest: Clear. Abdomen: Soft, nontender. Extremities: No edema. EKG as above. Chest x-ray was performed in the emergency department and showed no acute pathology. A renal ultrasound was also performed because his chest pain radiated to the flank area and showed a simple right and left renal cyst and fatty liver. Otherwise, unremarkable. LABORATORY DATA: Sodium 138, potassium 4.3, GFR greater than 60, LFTs normal, total cholesterol 172, TSH 1.04, cortisol pending, white count 5.1, hematocrit 44, platelets 224, urinalysis showed no blood. Echo is pending. IMPRESSION: A 57 -year-old male with strong family history of coronary artery disease presents to the hospital with an episode of substernal chest pressure radiating to the jaw with diaphoresis and near syncope. Concern for coronary artery disease, possible acute coronary syndrome, warrants definitive coronary assessment. PLAN: 1. Echocardiogram and repeat EKG this morning. 2. Obtain second set of cardiac enzymes which have still not been ordered. 3. Begin aspirin therapy. 4. We will make arrangements for transfer to [facility] for cardiac catheterization today. If patient develops recurrent chest pain or any further EKG changes, we will consider initiating anti-coagulation. We will start low dose beta blockade. Thank you for the consultation. LISA CARNES M.D. [id number]
--- NOTE | 2017-03-19 13:28 | EKG ---
Test Reason : Blood Pressure : / mmHG Vent. Rate : 089 BPM Atrial Rate : 089 BPM P-R Int : 168 ms QRS Dur : 090 ms QT Int : 352 ms P-R-T Axes : 071 065 065 degrees QTc Int : 428 ms SINUS RHYTHM WITH PREMATURE SUPRAVENTRICULAR COMPLEXES NONSPECIFIC T WAVE ABNORMALITY ABNORMAL ECG WHEN COMPARED WITH ECG OF 18-MAR-2017 16:22, PREMATURE SUPRAVENTRICULAR COMPLEXES ARE NOW PRESENT T WAVES ARE UPRIGHT IN aVL Confirmed by ELDA JENKINS MD ([id number]) on 03/19/2017 1:28:18 PM Referred By: Ned GARZA Confirmed By:ELDA JENKINS MD
--- NOTE | 2017-03-20 14:49 | EKG ---
Test Reason : Blood Pressure : / mmHG Vent. Rate : 080 BPM Atrial Rate : 080 BPM P-R Int : 168 ms QRS Dur : 082 ms QT Int : 364 ms P-R-T Axes : 057 053 073 degrees QTc Int : 419 ms NORMAL SINUS RHYTHM POSSIBLE LEFT ATRIAL ENLARGEMENT NONSPECIFIC T WAVE ABNORMALITY ABNORMAL ECG WHEN COMPARED WITH ECG OF 18-MAR-2017 06:03, NO SIGNIFICANT CHANGE WAS FOUND Confirmed by ADA GALLEGOS MD ([id number]) on 03/20/2017 2:49:01 PM Referred By: Confirmed By:ADA GALLEGOS MD
== END 2017-03-19 13:47 | disposition short-term general hospital (02) ==
LOC: JER 05:54 → JERBED 16:37 → J4W 19:21
PROVIDERS: ADMIT Family Medicine; ATTEND Family Medicine
PROC: 3E033NZ Introduction of Analgesics, Hypnotics, Sedatives into Peripheral Vein, Percutaneous Approach (ICD-10-PCS; principal; 2017-03-18)
PROC: 3E033GC Introduction of Other Therapeutic Substance into Peripheral Vein, Percutaneous Approach (ICD-10-PCS; 2017-03-18)
DX: R55 Syncope and collapse (principal); R07.9 Chest pain, unspecified; M62.838 Other muscle spasm; R10.9 Unspecified abdominal pain; K21.9 Gastro-esophageal reflux disease without esophagitis; H54.0 Blindness, both eyes; Z87.442 Personal history of urinary calculi; Z96.642 Presence of left artificial hip joint; Z87.891 Personal history of nicotine dependence; I10 Essential (primary) hypertension; Z86.19 Personal history of other infectious and parasitic diseases
CPT/HCPCS: 36415; 71020-TC; 76775-TC; 80053; 80061; 81003; 81015; 82530; 82533; 82553; 83036; 83721; 83735; 84443; 84484; 85025; 85027; 93005; 93010; 93306-TC; 99285-25; G0378

== ENCOUNTER 2017-10-21 09:26 | Emergency (ER) | payer BC ==
[2017-10-21 09:33] VITALS: BP 159/105; PULSE 87; TEMP 98.3; BMI 27.8
[2017-10-21] MEDS ORDERED: KETOROLAC TROMETHAMINE 60 MG/2 ML VIAL IM ONE (10:06)
[2017-10-21] MEDS ORDERED: KETOROLAC TROMETHAMINE 60 MG/2 ML VIAL ONE (10:07)
--- NOTE | 2017-10-21 10:18 | PDOC ---
History of Present Illness - General Chief Complaint: Pain, Acute Stated Complaint: RT SHOULDER PAIN Time Seen by Provider: 10/21/17 09:57 History Source: Patient Exam Limitations: No Limitations - History of Present Illness Initial Comments: 10/21/17 10:11 CHIEF COMPLAINT: Right shoulder pain for couple weeks HISTORY OF PRESENT ILLNESS: Patient is a 57-year-old male, denies any medical problems. Reports during the last 2 snowstorms, shoveling heavy wets snow, had pain after, denies direct trauma. Has not attempted to take any medication. Has good ROM with associated pain. Past History - Past Medical History Allergies/Adverse Reactions: Allergies Allergy/AdvReac Type Severity Reaction Status Date / Time No Known Allergies Allergy Verified 10/21/17 09:27 Home Medications: Ambulatory Orders Omeprazole Magnesium [Prilosec] 20 mg PO DAILY 03/18/17 Naproxen [Naprosyn] 500 mg PO BID #14 tablet 10/21/17 Anemia: No Asthma: No Cancer: No Cardiac Disorders: Yes (STATES "EXTRA' HEART BEAT-HE WAS TOLD THIS A LONG TIME AGO) CVA: No COPD: No CHF: No Dementia: No Diabetes: No GI Disorders: Yes (GERD) Disorders: No HTN: No Hypercholesterolemia: No Kidney Stones: Yes Liver Disease: No Seizures: No Thyroid Disease: No - Surgical History Abdominal Surgery: No Appendectomy: No Cardiac Surgery: No Cholecystectomy: No Lung Surgery: No Neurologic Surgery: No Orthopedic Surgery: Yes (LEFT HIP REPLACEMENT 01/2016, LEFT KNEE ARTHROSCOPY IN PAST) - Immunization History Immunization Up to Date: Yes - Suicide/Smoking/Psychosocial Hx Smoking Status: No Smoking History: Former smoker Have you smoked in the past 12 months: No Number of Cigarettes Smoked Daily: 0 If you are a former smoker, when did you quit?: 20 years ago Information on smoking cessation initiated: No Hx Alcohol Use: No Drug/Substance Use Hx: No Substance Use Type: None Hx Substance Use Treatment: No Review of Systems - Review of Systems Constitutional: No: Symptoms Reported Respiratory: No: Symptoms reported Cardiac (ROS): No: Symptoms Reported ABD/GI: No: Symptoms Reported Musculoskeletal: Yes: Joint Pain (right shoulder), Muscle Pain, Neck Pain ( right lateral). No: Joint Swelling, Muscle Weakness, Joint Stiffness Integumentary: No: Symptoms Reported, Erythema, Rash Neurological: No: Symptoms reported, Paresthesia, Tingling, Tremors Hematologic/Lymphatic: No: Symptoms Reported All Other Systems: Reviewed and Negative *Physical Exam - Vital Signs Last Vital Signs Temp Pulse Resp BP Pulse Ox 98.3 F 87 18 159/105 95 10/21/17 09:27 10/21/17 09:27 10/21/17 09:27 10/21/17 09:27 10/21/17 09:27 - Physical Exam General Appearance: Yes: Appropriately Dressed. No: Apparent Distress Neck: positive: Tender lateral (right lateral). negative: Lymphadenopathy (R), Lymphadenopathy (L), Tender midline Respiratory/Chest: positive: Lungs Clear, Normal Breath Sounds. negative: Respiratory Distress, Accessory Muscle Use Cardiovascular: positive: Regular Rhythm, Regular Rate Lymphatic: negative: Adenopathy Musculoskeletal: positive: Normal Inspection. negative: Decreased Range of Motion (no decreased range of motion, pain associated with range of motion), Muscle Spasm, Vertebral Tenderness Extremity: positive: Normal Capillary Refill, Normal Inspection, Normal Range of Motion (with associated pain). negative: Swelling, Calf Tenderness, Erythema , Inflammation Integumentary: positive: Normal Color, Dry. negative: Swelling, Ecchymosis, Bruising Neurologic: positive: Fully Oriented, Alert, Normal Mood/Affect, Normal Response , Motor Strength 5/5 Medical Decision Making - Medical Decision Making 10/21/17 11:21 A/P: Patient with right lateral shoulder pain with good range of motion. Patient reports no pain when at rest only pain with movement. Pain to right lateral shoulder, high suspicion for tendinopathy. Patient does have an orthopedist Dr. Vigil who he will follow up with. Give Toradol 60 mg IM times one, arm sling. DC on anti-inflammatories. Patient denies any history of hypertension BP is elevated upon arrival recheck of BP 148/90. She will follow-up with his PMD Dr. Mendoza 10/21/17 11:22 *DC/Admit/Observation/Transfer Diagnosis at time of Disposition: Right shoulder pain Qualifiers: Chronicity: acute Qualified Code(s): M25.511 - Pain in right shoulder - Discharge Dispostion Disposition: HOME Condition at time of disposition: Stable Admit: No - Prescriptions Prescriptions: Naproxen [Naprosyn] 500 mg PO BID #14 tablet - Referrals Referrals: Varghese Weems MD [Staff Physician] - - Patient Instructions Printed Discharge Instructions: DI for Shoulder Pain Additional Instructions: No heavy lifting greater than 10 pounds, please take Naprosyn make sure to take your other medication while on Naprosyn. Follow-up with orthopedics as soon as possible - Post Discharge Activity Forms/Work/School Notes: Back to Work
== END 2017-10-21 10:51 | disposition home or self-care (01) ==
LOC: JERFT 09:26 → JER 09:26 → JERFT 10:51
PROC: 3E0233Z Introduction of Anti-inflammatory into Muscle, Percutaneous Approach (ICD-10-PCS; principal; 2017-10-21)
DX: M25.511 Pain in right shoulder (principal)
CPT/HCPCS: 99281-25

== ENCOUNTER 2018-05-14 07:49 | Emergency (ER) | payer BC, OTHER ==
[2018-05-14 08:00] VITALS: BP 128/86; PULSE 76; TEMP 98.4; BMI 30.1
[2018-05-14 08:57] LABS: URINE APPEARANCE CLEAR; URINE BILIRUBIN NEGATIVE (<2.0 mg/dL); URINE GLUCOSE (UA) NEGATIVE (NEGATIVE); URINE KETONE NEGATIVE (NEGATIVE); URINE LEUK ESTERASE NEGATIVE (NEGATIVE); URINE NITRITE NEGATIVE (NEGATIVE); URINE UROBILINOGEN NEGATIVE mg/dL (0.2-1.0)
[2018-05-14 09:24] LABS: URINE COLOR DK YELLOW; URINE PROTEIN 2+ (NEGATIVE)
[2018-05-14 09:26] LABS: URINE HYALINE CAST 5 /lpf; URINE MUCUS MANY
[2018-05-14] MEDS ORDERED: ONDANSETRON 4 MG TABLET PO ONE (09:48)
[2018-05-14] MEDS ORDERED: SODIUM CHLORIDE 1,000 ML IV STA (09:48)
[2018-05-14] MEDS ORDERED: ACETAMINOPHEN 1000 MG/100 ML VIAL (NON FORMULARY) IVPB ONE (09:48)
[2018-05-14] MEDS ORDERED: FAMOTIDINE 20 MG/50 ML IVPB 20 MG/50 ML MG IVPB ONE (09:48)
--- NOTE | 2018-05-14 10:02 | PDOC ---
History of Present Illness - General Chief Complaint: Pain Stated Complaint: ABD PAIN Time Seen by Provider: 05/14/18 08:14 - History of Present Illness Initial Comments: 05/14/18 09:59 The patient is a 58 year old male with a significant PMH of albinism, blindness , kidney stones, GERD, bilateral hip replacement (1 year ago) who presents to the emergency department with abdominal pain for 2 days. The patient reports that his abdominal pain began yesterday. He was able to go to work through the pain yesterday, but today it worsened. The patient reports that his abdominal pain is 10/10 in severity, constant, localized to lower abdomen, and radiates to bilateral flanks. The patient denies any other symptoms. He denies any fever , chills,nausea, vomiting, diarrhea, constipation, or urinary symptoms. He denies any chest pain, shortness of breath, headache or dizziness. He denies any other complaints. No prior surgeries. PCP: Dr. Mendoza Past History - Past Medical History Allergies/Adverse Reactions: Allergies Allergy/AdvReac Type Severity Reaction Status Date / Time No Known Allergies Allergy Verified 05/14/18 12:37 Home Medications: Ambulatory Orders Lansoprazole [Prevacid 24Hr (OTC) -] 15 mg PO DAILY 05/14/18 Anemia: No Asthma: No Cancer: No Cardiac Disorders: Yes (STATES "EXTRA' HEART BEAT-HE WAS TOLD THIS A LONG TIME AGO) CVA: No COPD: No CHF: No DVT: No Dementia: No Diabetes: No GI Disorders: Yes (GERD) Disorders: No HTN: No Hypercholesterolemia: No Kidney Stones: Yes Liver Disease: No Seizures: No Thyroid Disease: No - Surgical History Abdominal Surgery: No Appendectomy: No Cardiac Surgery: No Cholecystectomy: No Lung Surgery: No Neurologic Surgery: No Orthopedic Surgery: Yes (LEFT HIP REPLACEMENT 01/2016, LEFT KNEE ARTHROSCOPY IN PAST) - Immunization History Immunization Up to Date: Yes - Suicide/Smoking/Psychosocial Hx Smoking Status: No Smoking History: Never smoked Have you smoked in the past 12 months: No Number of Cigarettes Smoked Daily: 0 If you are a former smoker, when did you quit?: 20 years ago Information on smoking cessation initiated: No Hx Alcohol Use: No Drug/Substance Use Hx: No Substance Use Type: None Hx Substance Use Treatment: No Review of Systems - Review of Systems Comments:: 05/14/18 10:00 GENERAL/CONSTITUTIONAL: No fever or chills. No weakness. HEAD, EYES, EARS, NOSE AND THROAT: No change in vision. No ear pain or discharge. No sore throat. CARDIOVASCULAR: No chest pain or shortness of breath. RESPIRATORY: No cough, wheezing, or hemoptysis. GASTROINTESTINAL:(+)abdominal pain. No nausea, vomiting, diarrhea or constipation. GENITOURINARY: No dysuria, frequency, or change in urination. MUSCULOSKELETAL: No joint or muscle swelling or pain. No neck or back pain. SKIN: No rash NEUROLOGIC: No headache, vertigo, loss of consciousness, or change in strength/ sensation. ENDOCRINE: No increased thirst. No abnormal weight change. HEMATOLOGIC/LYMPHATIC: No anemia, easy bleeding, or history of blood clots. ALLERGIC/IMMUNOLOGIC: No hives or skin allergy. *Physical Exam - Vital Signs Last Vital Signs Temp Pulse Resp BP Pulse Ox 98.4 F 76 18 128/86 97 05/14/18 07:55 05/14/18 07:55 05/14/18 07:55 05/14/18 07:55 05/14/18 07:55 - Physical Exam Comments: 05/14/18 10:01 "GENERAL: Awake, alert, and fully oriented, in no acute distress. HEAD: No signs of trauma EYES: PERRLA, EOMI, sclera anicteric, conjunctiva clear ENT: Auricles normal inspection, hearing grossly normal, nares patent, oropharynx clear without exudates. Moist mucosa NECK: Nontender, no stepoffs, Normal ROM, supple, no lymphadenopathy, JVD, or masses LUNGS: Breath sounds equal, clear to auscultation bilaterally. No wheezes, and no crackles HEART: Regular rate and rhythm, normal S1 and S2, no murmurs, rubs or gallops ABDOMEN: + bilateral lower quadrant TTP, normoactive bowel sounds. No guarding , no rebound. No masses EXTREMITIES: Normal range of motion, no edema. No clubbing or cyanosis. No cords, erythema, or tenderness NEUROLOGICAL: Cranial nerves II through XII intact. 5/5 strength and sensation in all extremities, Normal speech, normal gait, normal cerebellar function SKIN: Warm, Dry, normal turgor, no rashes or lesions noted. ED Treatment Course - LABORATORY CBC & Chemistry Diagram: 05/14/18 11:15 05/14/18 12:10 - ADDITIONAL ORDERS Additional order review: Laboratory Results 05/14/18 08:40 Urine Color Dk yellow Urine Appearance Clear Urine pH 5.0 Ur Specific [place] 1.034 Urine Protein 2+ H Urine Glucose (UA) Negative Urine Ketones Negative Urine Blood Negative Urine Nitrite Negative Urine Bilirubin Negative Urine Urobilinogen Negative Ur Leukocyte Esterase Negative Urine WBC (Auto) <1 Urine RBC (Auto) 2 Hyaline Casts 5 Urine Mucus Many - RADIOLOGY Radiology Studies Ordered: Category Date Time Status ABDOMEN & PELVIS CT WITH CONTR [CT] Stat CT Scan 05/14/18 09:47 Ordered Medical Decision Making - Medical Decision Making 05/14/18 10:00 58 M with bilateral lower quadrant abdominal pain and tenderness. Possible colitis vs diverticulitis vs appendicits. Also consider renal colic, though pt without CVAT. - Labs, lipase, UA - CTAP - IVF, GI cocktail 05/14/18 15:05 Labs wnl CTAP obtained, awaiting read *DC/Admit/Observation/Transfer Diagnosis at time of Disposition: Abdominal pain - Discharge Dispostion Disposition: HOME - Referrals Referrals: Abhijit Mendoza MD [Primary Care Provider] - Shayne Mercedes MD [Staff Physician] - - Patient Instructions Printed Discharge Instructions: DI for Abdominal Pain-Adult Additional Instructions: Follow up with a GI doctor for further evaluation of your abdominal pain. You may need an endoscopy to look for ulcers. If you experience worsening pain, fevers, vomiting, or any other concerning symptoms, return to the ER immediately. Otherwise, follow up with your primary doctor within 1 week for a re-evaluation. - Post Discharge Activity - Attestations Physician Attestion: 05/14/18 15:23 I, Dr. Reagan Ling MD, attest that this document has been prepared under my direction and personally reviewed by me in its entirety. I further attest, that it accurately reflects all work, treatment, procedures and medical decision -making performed by me.
[2018-05-14] MEDS ORDERED: ACETAMINOPHEN INJECTION 100 ML IVPB ONE (10:40)
[2018-05-14] MEDS ORDERED: ONDANSETRON *ODT* 4 MG TABLET ONE (10:40)
[2018-05-14 11:08] LABS: URINE APPEARANCE CLEAR; URINE BILIRUBIN NEGATIVE (<2.0 mg/dL); URINE GLUCOSE (UA) NEGATIVE (NEGATIVE); URINE KETONE NEGATIVE (NEGATIVE); URINE LEUK ESTERASE NEGATIVE (NEGATIVE); URINE NITRITE NEGATIVE (NEGATIVE); URINE UROBILINOGEN NEGATIVE mg/dL (0.2-1.0)
[2018-05-14 11:11] LABS: URINE COLOR DK YELLOW; URINE PROTEIN 2+ (NEGATIVE)
[2018-05-14 11:13] LABS: URINE HYALINE CAST 1 /lpf; URINE MUCUS MANY
[2018-05-14 11:24] LABS: BASO % 0.3 % (0-2.0); EOS % 2.1 % (0-4.5); HEMOGLOBIN 16.1 GM/dL (11.7-16.9); LYMPH % 27.5 % (8-40); MCHC 33.6 g/dl (32.0-35.9); MEAN CELL VOLUME 86.3 fl (80-96); MEAN PLT VOLUME 9.2 fl (7.5-11.1); MONO % 15.4 % (3.8-10.2); NEUT % 54.7 % (42.8-82.8); PLATELET COUNT 243 K/MM3 (134-434); RBC 5.56 M/mm3 (4.00-5.60); RDW 13.9 % (11.9-15.9)
[2018-05-14 12:41] LABS: ALBUMIN 3.4 g/dl (3.4-5.0); ALK PHOS 47 U/L (45-117); ANION GAP 6 MMOL/L (8-16); BILIRUBIN,TOTAL 0.7 mg/dL (0.2-1); BLOOD UREA NITROGEN 14 mg/dL (7-18); CALCIUM 8.4 mg/dL (8.5-10.1); CHLORIDE 107 mmol/L (98-107); CO2 24 mmol/L (21-32); CREATININE 0.7 mg/dL (0.55-1.3); GLUCOSE,RANDOM 97 mg/dL (74-106); POTASSIUM 4.5 mmol/L (3.5-5.1); SGOT/AST 17 U/L (15-37); SGPT/ALT 29 U/L (13-61); SODIUM 138 mmol/L (136-145); TOT PROT 6.8 g/dl (6.4-8.2)
[2018-05-14 13:16] LABS: LIPASE 78 U/L (73-393)
[2018-05-14] MEDS ORDERED: KETOROLAC TROMETHAMINE 30 MG/1 ML VIAL IVPUSH ONE (15:13)
[2018-05-14] MEDS ORDERED: KETOROLAC TROMETHAMINE 15 MG/ML VIAL ONE (15:48)
== END 2018-05-14 16:04 | disposition home or self-care (01) ==
LOC: JER 07:49
PROC: 3E033NZ Introduction of Analgesics, Hypnotics, Sedatives into Peripheral Vein, Percutaneous Approach (ICD-10-PCS; principal; 2018-05-14)
PROC: 3E033GC Introduction of Other Therapeutic Substance into Peripheral Vein, Percutaneous Approach (ICD-10-PCS; 2018-05-14)
PROC: 3E0337Z Introduction of Electrolytic and Water Balance Substance into Peripheral Vein, Percutaneous Approach (ICD-10-PCS; 2018-05-14)
DX: R10.30 Lower abdominal pain, unspecified (principal)
CPT/HCPCS: 36415; 74177-TC; 80053; 81003; 81015; 83690; 85025; 87086; 99282-25; J0131; J7030

== ENCOUNTER 2020-11-28 04:12 | Day surgery (SDC) | payer BC ==
[2020-11-25 08:28] VITALS: BMI 28.7
[2020-11-28] MEDS ORDERED: MIDAZOLAM HCL 2 MG/2 ML SINGLE DOSE VIAL ONE (08:30)
[2020-11-28] MEDS ORDERED: PROPOFOL 20 ML ONE ×2 (08:30→09:40)
[2020-11-28] MEDS ORDERED: DESFLURANE GAS 240 ML BOTTLE IH ONE (08:33)
[2020-11-28] MEDS ORDERED: SEVOFLURANE 250 ML BTL ONE (08:33)
[2020-11-28] MEDS ORDERED: ONDANSETRON 4 MG/2 ML VIAL IVPUSH PRN (10:44)
[2020-11-28] MEDS ORDERED: ACETAMINOPHEN 325 MG TABLET (FP) PO PRN (10:44)
[2020-11-28] MEDS ORDERED: LACTATED RINGERS SOLUTION 1,000 ML IV SCH (10:45)
[2020-11-28 11:55] VITALS: BP 151/76; PULSE 88; TEMP 97.3
== END 2020-11-28 11:05 | disposition home or self-care (01) ==
LOC: JASU-SURG 04:12
PROVIDERS: ATTEND Urology
PROC: 0TF3XZZ Fragmentation in Right Kidney Pelvis, External Approach (ICD-10-PCS; principal; 2020-11-28 09:00)
DX: N20.0 Calculus of kidney (principal)

== ENCOUNTER 2021-01-23 04:36 | Day surgery (SDC) | payer BC ==
[2021-01-23 08:30] VITALS: BMI 28.7
[2021-01-23] MEDS ORDERED: PROPOFOL 20 ML ONE (10:22)
[2021-01-23] MEDS ORDERED: MIDAZOLAM HCL 2 MG/2 ML SINGLE DOSE VIAL ONE ×2 (10:22→11:01)
[2021-01-23] MEDS ORDERED: ONDANSETRON 4 MG/2 ML VIAL IVPUSH PRN (11:03)
[2021-01-23] MEDS ORDERED: oxyCODONE HCL 5 MG TABLET PO PRN (11:03)
[2021-01-23] MEDS ORDERED: ACETAMINOPHEN 325 MG TABLET (FP) PO PRN (11:03)
[2021-01-23] MEDS ORDERED: LACTATED RINGERS SOLUTION 1,000 ML IV SCH (11:15)
[2021-01-23 12:08] VITALS: BP 143/86; PULSE 81; TEMP 97.3
== END 2021-01-23 12:10 | disposition home or self-care (01) ==
LOC: JASU-SURG 04:36
PROVIDERS: ATTEND Urology
PROC: 0TF4XZZ Fragmentation in Left Kidney Pelvis, External Approach (ICD-10-PCS; principal; 2021-01-23 10:51)
DX: N20.0 Calculus of kidney (principal)

== ENCOUNTER 2023-02-18 05:31 | Day surgery (SDC) | payer BC ==
[2023-02-15 15:14] VITALS: BMI 28.7
[2023-02-18] MEDS ORDERED: ONDANSETRON 4 MG/2 ML VIAL ONE (11:30)
[2023-02-18] MEDS ORDERED: MIDAZOLAM HCL 2 MG/2 ML SINGLE DOSE VIAL ONE ×2 (11:30→11:35)
[2023-02-18 12:53] VITALS: TEMP 98.5
[2023-02-18 12:56] VITALS: BP 127/84; PULSE 81; RESP 20
== END 2023-02-18 13:00 | disposition home or self-care (01) ==
LOC: JASU-SURG 05:31
PROVIDERS: ATTEND Urology
PROC: 0TF3XZZ Fragmentation in Right Kidney Pelvis, External Approach (ICD-10-PCS; principal; 2023-02-18 10:30)
DX: N20.0 Calculus of kidney (principal)

== ENCOUNTER 2025-02-18 12:28 | Emergency (ER) | payer OTHER, BC ==
[2025-02-18 12:40] VITALS: BP 138/74; PULSE 86; RESP 20; TEMP 98.2; BMI 28.7
[2025-02-18] MEDS ORDERED: ACETAMINOPHEN INJECTION 100 ML ONE (14:03)
[2025-02-18] MEDS ORDERED: DIPHTH,PERTUSS(ACELL),TET 0.5 ML DISP.SYRIN IM ONE (14:05)
[2025-02-18] MEDS: ACETAMINOPHEN 1000 MG/100 ML BAG IVPB ONE (14:26)
[2025-02-18] MEDS: DIPHTH,PERTUSS(ACELL),TET 0.5 ML DISP.SYRIN IM ONE (14:27)
[2025-02-18 14:51] LABS: ABSOLUTE IMMATURE GRANULOCYTES 0.01 x10^3/uL (0.0-0.031); BASOPHILS # 0.01 x10^3/uL (0.01-0.08); EOSINOPHIL % 2.6 % (0.8-7.0); EOSINOPHILS # 0.12 x10^3/uL (0.04-0.54); MCHC 33.6 g/dl (32.3-36.5); MEAN CELL VOLUME 84.0 fl (79.0-92.2); MEAN PLT VOLUME 10.6 fl (9.4-12.4); MONOCYTE # 0.57 x10^3/uL (0.30-0.82); MONOCYTE % 12.5 % (5.3-12.2); RDW 13.9 % (12.2-16.4)
[2025-02-18 14:57] LABS: INR 1.08 (0.83-1.09); PROTHROMBIN TIME (PATIENT) 11.8 SEC (9.7-13.0)
[2025-02-18 15:00] LABS: ACTIVATED PTT 27.6 SECONDS (25.2-36.5)
[2025-02-18] MEDS ORDERED: MUPIROCIN CA 2% TOPICAL CREAM 15 GM TUBE TP SCH ×2 (15:28→22:00)
[2025-02-18 15:50] LABS: GLUCOSE,RANDOM 125 mg/dL (74-106)
[2025-02-18 15:51] LABS: CO2 24 mmol/L (21-32)
[2025-02-18 15:54] LABS: CREATININE 0.9 mg/dL (0.55-1.3); SGOT/AST 96 U/L (15-37)
[2025-02-18 15:55] LABS: TOT PROT 8.1 g/dl (6.4-8.2)
[2025-02-18] MEDS: MUPIROCIN CA 2% TOPICAL CREAM 15 GM TUBE TP ONE ×2 (16:00→16:21)
[2025-02-18 16:01] LABS: ALK PHOS 62 U/L (45-117); SGPT/ALT 43 U/L (13-61)
[2025-02-18 16:03] LABS: URINE APPEARANCE CLEAR; URINE BILIRUBIN NEGATIVE (NEGATIVE); URINE COLOR YELLOW; URINE GLUCOSE (UA) NEGATIVE (NEGATIVE); URINE KETONE NEGATIVE (NEGATIVE); URINE LEUK ESTERASE NEGATIVE (NEGATIVE); URINE NITRITE NEGATIVE (NEGATIVE); URINE PROTEIN TRACE (NEGATIVE); URINE UROBILINOGEN 0.2 mg/dL (0.2-1.0)
[2025-02-18] MEDS ORDERED: CEPHALEXIN MONOHYDRATE 250 MG CAPSULE (FP) ONE (16:08)
[2025-02-18] MEDS: CEPHALEXIN MONOHYDRATE 250 MG CAPSULE (FP) PO ONE (16:10)
[2025-02-18] MEDS ORDERED: KETOROLAC TROMETHAMINE 15 MG/ML VIAL ONE (16:37)
[2025-02-18 16:44] LABS: HIV INTERPRETATION NEGATIVE (NEGATIVE)
[2025-02-18] MEDS: KETOROLAC TROMETHAMINE 15 MG/ML VIAL IVPUSH ONE (16:50)
[2025-02-18 17:14] LABS: HCV DIAGNOSTIC IN-HOUSE W/RFLX REACTIVE (NONREACTIVE)
== END 2025-02-18 16:59 | disposition home or self-care (01) ==
LOC: JER 12:28
PROC: 3E033NZ Introduction of Analgesics, Hypnotics, Sedatives into Peripheral Vein, Percutaneous Approach (ICD-10-PCS; principal; 2025-02-18)
PROC: 3E0333Z Introduction of Anti-inflammatory into Peripheral Vein, Percutaneous Approach (ICD-10-PCS; 2025-02-18)
PROC: 3E0234Z Introduction of Serum, Toxoid and Vaccine into Muscle, Percutaneous Approach (ICD-10-PCS; 2025-02-18)
DX: S40.862A Insect bite (nonvenomous) of left upper arm, initial encounter (principal); A46 Erysipelas; R53.1 Weakness; Z23 Encounter for immunization; W57.XXXA Bitten or stung by nonvenomous insect and other nonvenomous arthropods, initial encounter
CPT/HCPCS: 36415; 80053; 81003; 82550; 82553; 84484; 85025; 85610; 85730; 86803; 87389; 87522; 90471; 90715; 93005; 93010; 96374; 96375; 99284-25